=== PATIENT | male | born 1975 | race Caucasian/White ===

== ENCOUNTER 2019-02-13 15:01 | Emergency (ER) | payer OTHER ==
[~2019-02-13] VITALS: Ht 170.2 cm; Wt 65.8 kg
[~2019-02-13 15:01] MED LIST: NOHOMEMEDICATIONS; TOBRASOL5 ML OP
[2019-02-13] MEDS ORDERED: KEFLEX500 M1 PO (16:49)
[2019-02-13 17:54] VITALS: BP 141/90
== END 2019-02-13 17:55 | disposition home or self-care (01) ==
LOC: M.ERS 15:01
DX: S61.217A Laceration without foreign body of left little finger without damage to nail, initial encounter (principal); F17.210 Nicotine dependence, cigarettes, uncomplicated; W26.8XXA Contact with other sharp object(s), not elsewhere classified, initial encounter; Y93.89 Activity, other specified; Y92.89 Other specified places as the place of occurrence of the external cause; Y99.8 Other external cause status